=== PATIENT | female | born 1975 | race African-American/Black ===

== ENCOUNTER 2020-01-27 11:39 | Observation (INO) ==
[2020-01-27] MEDS ORDERED: ONDANSETRON 4 MG/2 ML VIAL IV PRN (14:44)
[2020-01-27] MEDS ORDERED: ACETAMINOPHEN 325 MG TABLET PO PRN (14:44)
[2020-01-27] MEDS: DEXTROSE 5% NACL 0.45% 1,000 ML IV SCH ×2 (17:55→23:59)
[2020-01-27] MEDS: cefOXitin 2,000 MG in SYRINGE 1 EACH IV SCH ×2 (17:56→21:43)
[2020-01-28] MEDS: DEXTROSE 5% NACL 0.45% 1,000 ML IV SCH (05:09)
[2020-01-28] MEDS: cefOXitin 2,000 MG in SYRINGE 1 EACH IV SCH ×2 (05:09→09:37)
[2020-01-28] MEDS ORDERED: TISSUE ADHESIVE 1 EACH APPLICATOR TOP ONE (06:19)
[2020-01-28] MEDS ORDERED: LIDOCAINE 1%/EPI INJ 20 ML VIAL ONE (06:19)
[2020-01-28] MEDS ORDERED: BUPIVACAINE MPF 0.25% 30 ML VIAL ONE (06:19)
[2020-01-28] MEDS ORDERED: fentaNYL 100 MCG/2 ML VIAL ONE (06:53)
[2020-01-28] MEDS ORDERED: ONDANSETRON 4 MG/2 ML VIAL ONE (06:53)
[2020-01-28] MEDS ORDERED: propofoL 200 MG/20 ML VIAL IV ONE (06:53)
[2020-01-28] MEDS ORDERED: DEXAMETHASONE 4 MG/1 ML VIAL ONE (06:53)
[2020-01-28] MEDS ORDERED: MIDAZOLAM 2 MG/2 ML VIAL ONE (06:53)
[2020-01-28] MEDS ORDERED: LIDOCAINE 2% 5 ML VIAL ONE (06:53)
[2020-01-28] MEDS ORDERED: ROCURONIUM 100 MG/10 ML VIAL IV ONE (06:54)
[2020-01-28] MEDS ORDERED: LACTATED RINGERS 1,000 ML IV ONE (06:54)
[2020-01-28] MEDS ORDERED: SUCCINYLCHOLINE 200 MG/10 ML VIAL ONE (06:54)
[2020-01-28] MEDS ORDERED: KETOROLAC 30 MG/1 ML VIAL ONE (06:54)
[2020-01-28 08:04] VITALS: BP 120/71
[2020-01-28] MEDS ORDERED: PANTOPRAZOLE 40 MG TABLET PO SCH (09:00)
== END 2020-01-28 10:39 | disposition home or self-care (01) ==
LOC: EDBD → EDUNIT# → N.ED 11:39 → N.EDINP 11:39 → N.3E 15:04
PROVIDERS: ADMIT Surgery; ATTEND Surgery
PROC: LAPCHOL (2020-01-28 06:00)

== ENCOUNTER 2020-02-29 06:13 | Inpatient (IN) ==
[2020-02-27 12:28] LABS: Basophils % 0.7 % (0.0-0.8); Eosinophils # 0.2 10*3/uL (0.0-0.87); Eosinophils % 3.7 % (0.00-10.9); Hematocrit 42.1 VOL% (35.7-47.0); Immature Granulocytes % 0.2 %; Immature Granulocytes Absolute 0.01 #; Lymphocytes # 2.9 10*3/uL (1.4-4.0); Lymphocytes % 49.2 % (21.3-54.2); Mean Corpuscular HGB Conc 33.3 GM/DL (32-36); Mean Corpuscular Volume 91.3 FL (87-102); Mean Platelet Volume 9.5 FL (9.6-12.0); Monocytes % 8.6 % (1.7-12.7); Neutrophils % 37.6 % (38.7-73.9); Platelet Count 339 T/CUMM (130-400); Red Blood Count 4.61 MC/CUMM (3.8-5.5); Red Cell Distribution Width 13.5 % (9.3-17.3)
[2020-02-27 12:59] LABS: Albumin 3.5 G/DL (3.4-5.0); Bilirubin,Total 4.8 MG/DL (0.2-1.0); Calcium 9.4 MG/DL (8.5-10.1); Osmolality,Calculated 272.7 MOS/KG (273-304); Total Protein 7.4 G/DL (6.4-8.3)
[2020-02-29] MEDS ORDERED: ceFAZolin 1,000 MG in SYRINGE 1 EACH IV ONE (06:30)
[2020-02-29] MEDS ORDERED: ACETAMINOPHEN 500 MG TABLET PO ONE (06:53)
[2020-02-29] MEDS ORDERED: GABAPENTIN 400 MG CAPSULE PO ONE (06:53)
[2020-02-29] MEDS ORDERED: DIAZEPAM 5 MG TABLET PO ONE (06:53)
[2020-02-29] MEDS ORDERED: FAMOTIDINE 20 MG TABLET PO ONE (06:53)
[2020-02-29] MEDS ORDERED: LACTATED RINGERS 1,000 ML IV SCH ×2 (07:00→09:30)
[2020-02-29 07:40] LABS: Albumin 3.2 G/DL (3.4-5.0); Bilirubin,Direct 3.15 MG/DL (0.0-0.20); Bilirubin,Indirect 1.1 MG/DL (0.0-1.0); Bilirubin,Total 4.2 MG/DL (0.2-1.0); Total Protein 7.2 G/DL (6.4-8.3)
[2020-02-29] MEDS ORDERED: ONDANSETRON 4 MG/2 ML VIAL IV PRN (07:47)
[2020-02-29] MEDS ORDERED: ACETAMINOPHEN 325 MG TABLET PO PRN (07:47)
[2020-02-29] MEDS ORDERED: MORPHINE 4 MG/1 ML VIAL IV PRN (07:47)
[2020-02-29 08:36] LABS: PT Patient Result 10.5 SECS (9.8-11.9); Partial Thromboplastin Time 26.4 SECS (23.9-33.8)
[2020-02-29] MEDS ORDERED: INDOMETHACIN SUPP 50 MG SUPP RECTAL ONE (09:30)
[2020-02-29] MEDS: metroNIDAZOLE INJ 500 MG in PREMIX 1 EACH IV SCH ×2 (10:08→16:43)
[2020-02-29] MEDS: LEVOFLOXACIN INJ 750 MG in PREMIX 1 EACH IV SCH (11:24)
[2020-02-29] MEDS ORDERED: ROCURONIUM 50 MG/5 ML VIAL IV ONE (12:04)
[2020-02-29] MEDS ORDERED: fentaNYL 100 MCG/2 ML VIAL ONE (12:04)
[2020-02-29] MEDS ORDERED: propofoL 200 MG/20 ML VIAL IV ONE ×2 (12:04→14:16)
[2020-02-29] MEDS ORDERED: LIDOCAINE 2% 5 ML VIAL ONE (12:04)
[2020-02-29] MEDS ORDERED: SUCCINYLCHOLINE 200 MG/10 ML VIAL ONE (12:04)
[2020-02-29] MEDS ORDERED: ONDANSETRON 4 MG/2 ML VIAL ONE (12:04)
[2020-02-29] MEDS ORDERED: MIDAZOLAM 2 MG/2 ML VIAL ONE (12:05)
[2020-02-29] MEDS ORDERED: SEVOFLURANE 1 UNIT/15 MINUTE INH ONE (14:13)
[2020-02-29] MEDS: PANTOPRAZOLE 40 MG TABLET PO SCH (14:49)
[2020-02-29] MEDS: DOCUSATE SODIUM 100 MG CAPSULE PO SCH ×2 (14:49→21:06)
[2020-03-01] MEDS: metroNIDAZOLE INJ 500 MG in PREMIX 1 EACH IV SCH ×2 (00:52→13:08)
[2020-03-01 05:57] LABS: Basophils % 0.5 % (0.0-0.8); Eosinophils # 0.2 10*3/uL (0.0-0.87); Eosinophils % 2.2 % (0.00-10.9); Hematocrit 38.1 VOL% (35.7-47.0); Immature Granulocytes % 0.3 %; Immature Granulocytes Absolute 0.02 #; Lymphocytes # 2.5 10*3/uL (1.4-4.0); Lymphocytes % 34.6 % (21.3-54.2); Mean Corpuscular HGB Conc 34.1 GM/DL (32-36); Mean Corpuscular Volume 90.5 FL (87-102); Mean Platelet Volume 9.8 FL (9.6-12.0); Monocytes % 8.4 % (1.7-12.7); Platelet Count 277 T/CUMM (130-400); Red Blood Count 4.21 MC/CUMM (3.8-5.5); Red Cell Distribution Width 13.4 % (9.3-17.3); White Blood Count 7.4 T/CUMM (4-12)
[2020-03-01] MEDS ORDERED: GABAPENTIN 400 MG CAPSULE PO ONE (06:00)
[2020-03-01] MEDS ORDERED: FAMOTIDINE 20 MG TABLET PO ONE (06:00)
[2020-03-01] MEDS ORDERED: ACETAMINOPHEN 500 MG TABLET PO ONE (06:00)
[2020-03-01] MEDS ORDERED: DIAZEPAM 5 MG TABLET PO ONE (06:00)
[2020-03-01] MEDS ORDERED: ceFAZolin 1,000 MG in SYRINGE 1 EACH IV ONE (06:00)
[2020-03-01 06:31] LABS: Albumin 2.8 G/DL (3.4-5.0); Bilirubin,Total 1.8 MG/DL (0.2-1.0); Calcium 8.8 MG/DL (8.5-10.1); Osmolality,Calculated 271.7 MOS/KG (273-304); Total Protein 6.5 G/DL (6.4-8.3)
[2020-03-01] MEDS ORDERED: TISSUE ADHESIVE 1 EACH APPLICATOR TOP ONE (08:24)
[2020-03-01] MEDS ORDERED: BUPIVACAINE MPF 0.25% 30 ML VIAL ONE (08:24)
[2020-03-01] MEDS ORDERED: LIDOCAINE 1%/EPI INJ 20 ML VIAL ONE (08:25)
[2020-03-01] MEDS ORDERED: MIDAZOLAM 2 MG/2 ML VIAL ONE (09:38)
[2020-03-01] MEDS ORDERED: ROCURONIUM 50 MG/5 ML VIAL IV ONE (09:38)
[2020-03-01] MEDS ORDERED: fentaNYL 100 MCG/2 ML VIAL ONE ×2 (09:38→10:35)
[2020-03-01] MEDS ORDERED: LIDOCAINE 2% 5 ML VIAL ONE (09:38)
[2020-03-01] MEDS ORDERED: propofoL 200 MG/20 ML VIAL IV ONE (09:38)
[2020-03-01] MEDS ORDERED: SCOPOLAMINE 1.5 MG PATCH TRANSDERM ONE (10:12)
[2020-03-01] MEDS ORDERED: DEXAMETHASONE 4 MG/1 ML VIAL ONE (10:21)
[2020-03-01] MEDS ORDERED: ONDANSETRON 4 MG/2 ML VIAL ONE (10:21)
[2020-03-01] MEDS ORDERED: PROMETHAZINE 25 MG/1 ML VIAL ONE (10:24)
[2020-03-01] MEDS ORDERED: KETOROLAC 30 MG/1 ML VIAL ONE (10:25)
[2020-03-01] MEDS ORDERED: LACTATED RINGERS 1,000 ML IV ONE (10:26)
[2020-03-01] MEDS ORDERED: ESMOLOL 100 MG/10 ML VIAL IV ONE (10:39)
[2020-03-01] MEDS ORDERED: GLYCOPYRROLATE 0.4 MG/2 ML VIAL ONE (10:53)
[2020-03-01] MEDS ORDERED: NEOSTIGMINE 10 MG/10 ML VIAL ONE (10:53)
[2020-03-01] MEDS ORDERED: SEVOFLURANE 1 UNIT/15 MINUTE INH ONE (11:00)
[2020-03-01] MEDS: PANTOPRAZOLE 40 MG TABLET PO SCH (13:08)
[2020-03-01] MEDS: DOCUSATE SODIUM 100 MG CAPSULE PO SCH (13:09)
[2020-03-01] MEDS: LEVOFLOXACIN INJ 750 MG in PREMIX 1 EACH IV SCH (14:18)
[2020-03-01 16:29] VITALS: BP 108/57
== END 2020-03-01 16:51 | disposition home or self-care (01) | DRG 419 ==
LOC: N.OR 06:13 → N.SDSINP 06:15 → N.3E 09:11
PROVIDERS: ADMIT Surgery; ATTEND Surgery
PROC: ERCPWSP (ICD-10-PCS; 2020-02-29 11:35)
PROC: LAPCHOL (2020-03-01 09:35)